=== PATIENT | female | born 2000 | race American Indian/Alaskan Native ===

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

== ENCOUNTER 2019-08-28 14:35 | Emergency (ER) | payer SELFPAY ==
[2019-08-28 15:05] VITALS: BP 130/83
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
[2019-08-28 16:59] LABS: Basophils % (Auto) 0.2 % (0.0-1.8); Hematocrit 39.5 % (30.3-42.9); Hemoglobin 13.2 gm/dl (10.1-14.3); Lymphocytes # (Auto) 1.1 K/mm3 (1.2-5.4); Lymphocytes % (Auto) 9.7 % (13.4-35.0); Mean Corpuscular HGB Conc 33 % (30-34); Mean Corpuscular Volume 95 fl (79-97); Monocytes # (Auto) 0.9 K/mm3 (0.0-0.8); Platelet Count 309 K/mm3 (140-440); Red Blood Count 4.16 M/mm3 (3.65-5.03); Red Cell Distribution Width 12.4 % (13.2-15.2)
[2019-08-28 17:20] LABS: Alanine Aminotransferase 14 units/L (7-56); Albumin 4.3 g/dL (3.9-5); BUN/Creatinine Ratio 8; Blood Urea Nitrogen 7 mg/dL (7-17); Calcium 9.4 mg/dL (8.4-10.2); Hemolysis Index 14
--- NOTE | 2019-08-28 18:12 | Ultrasound Report ---
US OB <= 14 weeks fetus, US OB transvaginal INDICATION / CLINICAL INFORMATION: +home preg tests, abdominal trauma, bleeding. COMPARISON: None available. FINDINGS: Uterus measures 7.4 cm with 1.1 cm endometrial stripe thickness. Myometrial echogenicity is homogeneously normal. No evidence of intrauterine . Both ovaries are identified and appear normal. No fluid collections are seen in the pelvis. IMPRESSION: 1. No intrauterine or pelvic abnormality. Signer Name: Dom Loza MD Signed: 08/28/2019 6:07 PM Workstation Name: [id number]
[2019-08-28 18:19] LABS: Bilirubin,Urine NEG (Negative); Blood,Urine LG (Negative); Color,Urine Yellow (Yellow); Mucus,Urine 3+ /HPF; Protein,Urine <15 mg/dL mg/dL (Negative); Urobilinogen,Urine < 2.0 mg/dL (<2.0)
== END 2019-08-28 18:15 | disposition home or self-care (01) ==
LOC: ED 14:35
DX: N39.0 Urinary tract infection, site not specified (principal)
CPT/HCPCS: 36415; 76801; 76817; 80053; 81001; 84703; 85025